=== PATIENT | female | born 1995 ===

== ENCOUNTER 2017-03-31 13:45 | Emergency (ER) | payer OTHER ==
[2017-03-31 14:31] VITALS: BP 118/59; PULSE 61; RESP 18; TEMP 98.1; O2SAT 100
--- NOTE | 2017-03-31 16:12 | ED PDOC ---
Upper Extremity Pain/Injury Time Seen by Provider: 03/31/17 15:26 Chief Complaint (Nursing): Upper Extremity Problem/Injury Chief Complaint (Provider): Right Hand Pain History Per: Patient History/Exam Limitations: no limitations Onset/Duration Of Symptoms: Other (x 1 month) Current Symptoms Are (Timing): Still Present Additional Complaint(s): Elisa is a 22 year old female who presents to the Emergency Department complaining of right hand pain that started 1 month ago. Patient states pain is localized to right wrist and slowly radiates to her shoulder. Associated with numbness and tingling to same area. Reports she is right hand dominant. Denies any trauma, fall, or injury. Denies taking medications and any weakness. Pain is worse at night. PMD: No Provider Past Medical History Reviewed: Historical Data, Nursing Documentation, Vital Signs Vital Signs: Last Vital Signs Temp 98.1 F 03/31/17 14:27 Pulse 61 03/31/17 14:27 Resp 18 03/31/17 14:27 BP 118/59 L 03/31/17 14:27 Pulse Ox 100 03/31/17 14:27 - Medical History PMH: No Chronic Diseases - Surgical History Surgical History: No Surg Hx - Family History Family History: States: Diabetes - Social History Current smoker - smoking cessation education provided: No - Home Medications Home Medications: Ambulatory Orders Medication Instructions Recorded Ibuprofen [Motrin Tab] 600 mg PO Q8 PRN #60 tab 03/31/17 Non-Formulary 1 ea .ROUTE PRN #1 ea 03/31/17 - Allergies Allergies/Adverse Reactions: Allergies Allergy/AdvReac Type Severity Reaction Status Date / Time No Known Allergies Allergy Verified 03/31/17 14:26 Review of Systems Constitutional: Negative for: Fever, Chills, Weakness Skin: Negative for: Rash, Other (Swelling) Neurological: Positive for: Numbness. Negative for: Weakness Physical Exam - Reviewed Nursing Documentation Reviewed: Yes Vital Signs Reviewed: Yes - Physical Exam Appears: Positive for: Non-toxic, No Acute Distress Head Exam: Positive for: ATRAUMATIC, NORMOCEPHALIC Skin: Positive for: Warm, Dry Neck: Positive for: Painless ROM, Supple (no midline ttp) Extremity: Positive for: Normal ROM, Other (FROM R hand light touch intact in all nerve distributions, thumb opposition, thumb abduction, finger abduction 5/5 , <2 sec CR, 2+ radial pulse). Negative for: Tenderness, Deformity, Swelling Lymphatic: Negative for: Axilla Node Tenderness (right side) Neurologic/Psych: Positive for: Alert. Negative for: Motor/Sensory Deficits - ECG O2 Sat by Pulse Oximetry: 100 (RA) Pulse Ox Interpretation: Normal - Other Rad RIGHT wrist xary X-Ray: Interpreted by Me (No fx/dislocation) Medical Decision Making Medical Decision Making: Time: 15:32 Impression: Extremity Pain Differentials include, but not limited to: carpal tunnel syndrome, peripheral neuropathy, arthritis, occult fracture, sprain Plan: - Toradol 15 mg IM STAT - Glucose, Blood, POC STAT - X-Ray Right Wrist Time: 16:00 Upon provider evaluation patient is medically stable, and requires no further treatment in the ED at this time. Patient will be discharged with Rx for Non- Formulary and Motrin Tab. Counseling was provided and all questions were answered regarding diagnosis and need for follow up with local clinic. There is agreement to discharge plan. Return if symptoms persist or worsen. Scribe Attestation: Documented by Jun Connor, acting as a scribe for Joan Lugo MD Provider Scribe Attestation: All medical record entries made by the Scribe were at my direction and personally dictated by me. I have reviewed the chart and agree that the record accurately reflects my personal performance of the history, physical exam, medical decision making, and the department course for this patient. I have also personally directed, reviewed, and agree with the discharge instructions and disposition. Disposition - Clinical Impression Clinical Impression: Carpal tunnel syndrome - Disposition Referrals: [facility] [Outside] - 04/07/17 Disposition: Routine/Home Disposition Time: 16:00 Condition: STABLE Additional Instructions: JANIE MEDICAMENTO A RECETO VISITA A [facility] EN 7-10 ALVES A CHEQAR DE NUEVO Prescriptions: Ibuprofen [Motrin Tab] 600 mg PO Q8 PRN #60 tab PRN Reason: Pain, Moderate (4-7) Non-Formulary 1 ea .ROUTE PRN #1 ea Instructions: Carpal Tunnel Syndrome (ED), Paresthesia (ED) Forms: [facility] ED School/Work Excuse Print Language: [place]
--- NOTE | 2017-03-31 16:29 | RAD ---
PROCEDURE: Right Wrist Radiographs. HISTORY: RIGHT wrist pain COMPARISON: None available. FINDINGS: BONES: No acute displaced fracture. JOINTS: No dislocation. SOFT TISSUES: Unremarkable. No evidence of radiopaque foreign body OTHER FINDINGS: None. IMPRESSION: No acute displaced fracture, dislocation, or significant joint effusion identified. If symptoms persist, or if there is continued clinical concern, x-ray follow-up in 7-10 days should be considered.
== END 2017-03-31 16:50 | disposition home or self-care (01) ==
LOC: H.ER 13:45
DX: G56.00 Carpal tunnel syndrome, unspecified upper limb (principal)
CPT/HCPCS: 73110; 96372; 99282; J1885